=== PATIENT | female | born 1930 | race Caucasian/White ===

== ENCOUNTER 2017-10-30 20:03 | Emergency (ER) | payer OTHER ==
--- OUTSIDE RECORDS SUMMARY | 2017-10-30 20:05 | XMS REPORT | Clinical Summary ---
:1930 Author Organization [facility] Address [address] [place] [address] Care Team Providers Name Role Phone Kishan Rodríguez MD Primary Care Provider Allergies Active Allergy Reactions Severity Noted Date Comments Sulfa (Sulfonamide Antibiotics) 07/26/2017 Current Medications Prescription Sig. Disp. Refills Start Date End Date Status busPIRone (BUSPAR) Take 5 mg by 1 07/14/2017 Active 5 MG tablet mouth every morning. losartan (COZAAR) TAKE 1 TABLET 6 07/02/2017 Active 50 MG tablet BY ORAL ROUTE 2 TIMES EVERY DAY SYNTHROID 75 mcg Take 75 mcg 3 07/13/2017 Active tablet by mouth once daily. hydrALAZINE Take 10 mg by 3 08/21/2017 Active (APRESOLINE) 10 MG mouth 2 (two) tablet times a day. RED YEAST RICE ORAL Take by Active mouth. isosorbide Take 1 tablet 90 tablet 3 09/06/2017 09/06/2018 Active mononitrate (IMDUR) (30 mg total) 30 MG 24 hr tablet by mouth every morning. metoprolol Take 1 tablet 180 tablet 3 09/11/2017 09/11/2018 Active succinate XL (50 mg total) (TOPROL-XL) 50 mg by mouth 2 24 hr tablet (two) times a day. metoprolol Take 50 mg by 3 06/25/2017 09/11/2017 Discontinued succinate XL mouth once (TOPROL-XL) 50 mg daily. Twice 24 hr tablet daily Active Problems Problem Noted Date Hypertensive crisis 10/18/2017 Abnormal EKG 10/18/2017 Essential hypertension 07/26/2017 Encounters Date Type Specialty Care Team Description 10/30/2017 Hospital Encounter Procedural Cardiology Adalid Banks Hypertensive hien; MD Olivia Abnormal EKG 10/18/2017 Office Visit Cardiology Adalid Banks Essential hypertension ( Primary Dx); MD Olivia Hypertensive crisis; Abnormal EKG 09/19/2017 Telephone Cardiovascular Adalid Banks MD 09/13/2017 Telephone Cardiovascular Adalid Banks MD 09/11/2017 Refill Cardiology Adalid Banks Med Refill MD Olivia 09/06/2017 Office Visit Cardiology Adalid Banks Essential MD Olivia hypertension (Primary Dx) 08/31/2017 Telephone Cardiology Adalid Banks f/u on rx change MD Olivia 08/27/2017 Telephone Cardiology Adalid Banks change in RX d/t htn MD Olivia 07/26/2017 Office Visit Cardiology Adalid Banks Annual physical exam ( Primary Dx); MD Olivia Essential hypertension after 10/29/2016 Family History Medical History Relation Name Comments CABG/Stent Mother triple CABG/Stent Son triple Relation Name Status Comments Mother Son Social History Tobacco Use Types Packs/Day Years Used Date Never Smoker Smokeless Tobacco: Never Used Alcohol Use Drinks/Week oz/Week Comments Yes Sex Assigned at Date Recorded Not on file Last Filed Vital Signs Vital Sign Reading Time Taken Blood Pressure 207/79 10/30/2017 2:07 PM CDT Pulse 56 10/30/2017 2:07 PM CDT Temperature - - Respiratory Rate 16 10/18/2017 10:48 AM CDT Oxygen Saturation - - Inhaled Oxygen Concentration - - Weight 56.7 kg (125 lb) 10/30/2017 2:07 PM CDT Height 162.6 cm (5' 4") 10/30/2017 2:07 PM CDT Body Mass Index 21.46 10/30/2017 2:07 PM CDT Plan of Treatment Health Maintenance Due Date Last Done Comments ZOSTER VACCINE 1989 PNEUMOCOCCAL POLYSACCHARIDE VACCINE AGE 65 AND OVER 1994 PNEUMOCOCCAL-13 1994 INFLUENZA VACCINE 02/20/2018 Results Cv cta coronary arteries w contrast (10/30/2017 2:03 PM) Specimen Performing Laboratory [facility] [address] [place] [address] Narrative Nuclear Cardiology and Cardiac CT [address] [address] CTA Coronary Arteries Report Pat.Name:ARTUR CABRERA Pat.ID:[id number] St.Date: 10/30/2017 Refer.MD:ADALID BANKS MD Exam Time: 1:36:00 PMStudy Type:CTA Coronary Arteries Height:64inWeight: 122.74lb BSA: 1.59 m2 DOBAge:1930,87Y Sex: FEMALEHR: 62 bpm Nuclear Tech:RT Lucinda(R)(CT) Pat. Stat.:Outpatient CPT - 4: CCTA w Thoracic Aorta (NonCongenital) [id number] Nuclear Event ID:[id number] Order ID:[id number] Reason for Study:CAD [place] coronary artery* Procedures:CTA Chest Non- Coronary, CTA Coronary Arteries Race:C SUMMARY: Technique: IV contrast was administered and sequential 0.[address] cuts were obtained through the [facility]. Post-processing and 3D reconstruction were done using the [employer] workstation. Interactive image viewing and volumetric display and analysis were also performed. CTA RESULTS Left Main: A normal sized3.5 mm artery which arises normally from the left sinus of Valsalva and divides into the left anterior descending and circumflex coronary arteries. Mild calcified and non-calcified atherosclerotic plaque is present and with 50-55% ostial stenosis. Left anterior descending (LAD): A normal sized 3.1mm artery which wraps around the apex and gives off three diagonal branches. Moderate calcified and non-calcified atherosclerotic plaque is present in the proximal, mid and distal segments but without significant stenosis. The first diagonal is a 1.3 mm artery which has mild calcified atherosclerotic plaque but no significant stenosis. The second diagonal is a 1.6 mm artery which has no significant atherosclerotic plaque. The third diagonal is a 1.7 mm artery which has no significant atherosclerotic plaque. Left circumflex: A normal sized 2.5 mm non-dominant artery which gives off two major obtuse marginal arteries before terminating in the AV groove. Mild calcified and noncalcified atherosclerotic plaque is present in the proximal segment but no significant stenosis. The first obtuse marginal is a 2.3 mm bifurcating artery which has moderate calcified and noncalcified atherosclerotic plaque is present and with 40% stenosis in the ostial segment. The second obtuse marginal is a 1.8 mm artery which has mild calcified atherosclerotic plaque but no significant stenosis. Right coronary artery: A normal sized 4.4 mm dominant artery which arises normally from the right sinus of Valsalva and gives off several right ventricular branches, the posterior descending artery and the posterolateral artery.Mild calcified atherosclerotic plaque is present in the proximal segment but without significant stenosis. The posterior descending is a 2.5 mm bifurcating artery which has mild calcified and noncalcified atherosclerotic plaque but no significant stenosis. The posterolateral branch is a 2.6 mm bifurcating artery which has mild calcified and noncalcified atherosclerotic plaque but no significant stenosis. Stents: None. Bypass Grafts: None. Pulmonary Arteries: Normal pulmonary artery sizes with no proximal thrombus identified. Left Atrial and Pulmonary Vein(PV) Dimensions: Left atrial size (A-P diameter) 3.4 cm. Normal PV anatomy. Left superior PV14 mm. Left inferior PV15 mm. Right superior PV16 mm. Right inferior PV18 mm. There is no evidence of the left atrial appendage clot. Patent foramen ovale. Left Ventricular Valve Morphology/Function: Aortic valve is tri-leaflet without stenosis. Thoracic Aortic Dimensions: No aortic aneurysm or dissection is seen. Aortic root: 3.6 cm. Sinotubular junction 2.5 cm. Mid ascending thoracic aorta 3.3 cm. Distal ascending thoracic aorta 3.1 cm. Aortic arch 2.4 cm. There is normal takeoff of the great vessels and no significant stenosis in the proximal visualized segments. Aortic Isthmus 2.2 cm. Descending thoracic aorta 2.0 cm. Pericardium: No pericardial effusion or pericardial thickening. Non-Cardiac Findings: Bibasilar lung atelectasis. Small hiatal hernia. CONCLUSION CT coronary angiography shows moderate 50-55% stenosis in the ostial left main and minimal 40% stenosis in the ostium of the first obtuse marginal coronary artery. STUDY QUALITY The study quality is good. COMMENTS: None. The above report was based on a dedicated Cardiovascular CTA Protocol and interpreted by a Hvac R Instructor.Should a more comprehensive assessment of non-cardiovascular findings be desired, please consult a radiologist.These images are available in the [facility] [employer] PACS system. Signed 10/30/2017 05:27 PM Vernon Thompson MD Procedure Note Interface, Radiology Results In - 10/30/2017 5:28 PM CDT Nuclear Cardiology and Cardiac CT [address] [address] CTA Coronary Arteries Report Pat.Name: ARTUR CABRERA Pat.ID: [id number] St.Date: 10/30/2017 Refer.MD: ADALID BANKS MD Exam Time: 1:36:00 PM Study Type:CTA Coronary Arteries Height: 64in Weight: 122.74lb BSA: 1.59 m2 Age: 10 1930,87Y Sex: FEMALE HR: 62 bpm Nuclear Tech:RT Lucinda(R)(CT) Pat. Stat.:Outpatient CPT - 4: CCTA w Thoracic Aorta (NonCongenital) [id number] Nuclear Event ID:[id number] Order ID: [id number] Reason for Study:CAD [place] coronary artery* Procedures:CTA Chest Non- Coronary, CTA Coronary Arteries Race: C SUMMARY: Technique: IV contrast was administered and sequential 0.[address] cuts were obtained through the chest using the Siem[employer] Som[employer] Force CT scanner. Post-processing and 3D reconstruction were done using the [employer] workstation. Interactive image viewing and volumetric display and analysis were also performed. CTA RESULTS Left Main: A normal sized 3.5 mm artery which arises normally from the left sinus of Valsalva and divides into the left anterior descending and circumflex coronary arteries. Mild calcified and non-calcified atherosclerotic plaque is present and with 50-55% ostial stenosis. Left anterior descending (LAD): A normal sized 3.1mm artery which wraps around the apex and gives off three diagonal branches. Moderate calcified and non-calcified atherosclerotic plaque is present in the proximal, mid and distal segments but without significant stenosis. The first diagonal is a 1.3 mm artery which has mild calcified atherosclerotic plaque but no significant stenosis. The second diagonal is a 1.6 mm artery which has no significant atherosclerotic plaque. The third diagonal is a 1.7 mm artery which has no significant atherosclerotic plaque. Left circumflex: A normal sized 2.5 mm non-dominant artery which gives off two major obtuse marginal arteries before terminating in the AV groove. Mild calcified and noncalcified atherosclerotic plaque is present in the proximal segment but no significant stenosis. The first obtuse marginal is a 2.3 mm bifurcating artery which has moderate calcified and noncalcified atherosclerotic plaque is present and with 40% stenosis in the ostial segment. The second obtuse marginal is a 1.8 mm artery which has mild calcified atherosclerotic plaque but no significant stenosis. Right coronary artery: A normal sized 4.4 mm dominant artery which arises normally from the right sinus of Valsalva and gives off several right ventricular branches, the posterior descending artery and the posterolateral artery. Mild calcified atherosclerotic plaque is present in the proximal segment but without significant stenosis. The posterior descending is a 2.5 mm bifurcating artery which has mild calcified and noncalcified atherosclerotic plaque but no significant stenosis. The posterolateral branch is a 2.6 mm bifurcating artery which has mild calcified and noncalcified atherosclerotic plaque but no significant stenosis. Stents: None. Bypass Grafts: None. Pulmonary Arteries: Normal pulmonary artery sizes with no proximal thrombus identified. Left Atrial and Pulmonary Vein (PV) Dimensions: Left atrial size (A-P diameter) 3.4 cm. Normal PV anatomy. Left superior PV14 mm. Left inferior PV15 mm. Right superior PV16 mm. Right inferior PV18 mm. There is no evidence of the left atrial appendage clot. Patent foramen ovale. Left Ventricular Valve Morphology/Function: Aortic valve is tri-leaflet without stenosis. Thoracic Aortic Dimensions: No aortic aneurysm or dissection is seen. Aortic root: 3.6 cm. Sinotubular junction 2.5 cm. Mid ascending thoracic aorta 3.3 cm. Distal ascending thoracic aorta 3.1 cm. Aortic arch 2.4 cm. There is normal takeoff of the great vessels and no significant stenosis in the proximal visualized segments. Aortic Isthmus 2.2 cm. Descending thoracic aorta 2.0 cm. Pericardium: No pericardial effusion or pericardial thickening. Non-Cardiac Findings: Bibasilar lung atelectasis. Small hiatal hernia. CONCLUSION CT coronary angiography shows moderate 50-55% stenosis in the ostial left main and minimal 40% stenosis in the ostium of the first obtuse marginal coronary artery. STUDY QUALITY The study quality is good. COMMENTS: None. The above report was based on a dedicated Cardiovascular CTA Protocol and interpreted by a Hvac R Instructor. Should a more comprehensive assessment of non-cardiovascular findings be desired, please consult a radiologist. These images are available in the [facility] [employer] PACS system. Signed 10/30/2017 05:27 PM Vernon Thompson MD Estimated GFR (10/30/2017 1:24 PM) Component Value Ref Range GFR Non Af Amer 52 (A) mL/min/1.73 m2 GFR Af Amer 63 mL/min/1.73 m2 Comment: Chronic kidney disease: <60 mL/min/1.73m2 Kidney failure: <15 mL/min/1.73m2 The estimated GFR is calculated from the IDMS-traceable Modification of Diet in Renal Disease Equation. The accuracy of the calculation is poor when the creatinine is normal. Calculated values >90 mL/min/1.73m2 are not reported. This equation has not been validated in children (<18 years), women, the elderly (>70 years), or ethnic groups other than Caucasians and Americans. Specimen Performing Laboratory Blood [facility] DEPARTMENT OF PATHOLOGY AND GENOMIC MEDICINE [address] [place] [id number] POC creatinine (10/30/2017 1:24 PM) Component Value Ref Range POC creatinine 1.0 (H) 0.5 - 0.9 mg/dl Comment: Meter ID: [id number] Receiving Coordinator: Ruddy Shankar Specimen Performing Laboratory Blood [facility] DEPARTMENT OF PATHOLOGY AND GENOMIC MEDICINE [address] [place] [id number] ECG 12 lead (10/18/2017 10:51 AM)Only the most recent of2 resultswithin the time period is included. Component Value Ref Range Ventricular rate 56 Atrial rate 56 MA interval 188 QRSD interval 78 QT interval 448 QTC interval 432 P axis 1 70 QRS axis 1 -30 T wave axis 53 EKG impression Sinus bradycardia-Left axis deviation-Abnormal ECG-In automated comparison with ECG of 26-JUL-2017 08:50,-No significant change was found- Specimen Performing Laboratory [facility] [address] [place] [address] after 10/29/2016 Insurance Payer Benefit Plan / Group Subscriber ID Type Phone Address MEDICARE MEDICARE PART A AND B xxxxxxxxxx Medicare [place], [place] [employer] xxxxxxxxx Commercial [phone] [address]
[2017-10-30] MEDS ORDERED: NA CHLORIDE 0.9% 1,000 ML ONE (21:17)
[2017-10-30] MEDS ORDERED: HYDRALAZINE HCL 10 MG TABLET ONE (21:17)
[2017-10-30] MEDS ORDERED: HYDRALAZINE HCL 20 MG/ML VIAL ONE (21:17)
--- NOTE | 2017-10-30 21:20 | RAD REPORT ---
EXAM DESCRIPTION: RAD - Chest Single View - 10/30/2017 9:14 pm CLINICAL HISTORY: Cough, hypertension COMPARISON: 09/12/2017 FINDINGS: Portable technique limits examination quality. The lungs are mildly emphysematous but grossly clear. The heart is mildly enlarged in size. No displa syed fractures.Aortic atherosclerosis noted. IMPRESSION: No acute intrathoracic process suspected.
[2017-10-30 22:12] LABS: Protime INR 1.13
[2017-10-30 22:13] LABS: Absolute Monocytes 0.9 K/uL (0.1-1.3); Absolute Neutrophil 4.7 K/uL (1.8-8.0); Basophils % 0.4 % (0-1.3); Eosinophils % 0.8 % (0-4.4); Lymphocytes % 25.8 % (15.3-44.8); MCH 29.6 pg (27.0-35.0); MCV 89.9 fL (80-100); MPV 9.8 fL (7.6-11.3); Monocytes % 11.2 % (3.3-12.3)
[2017-10-30 22:13] LABS: Urine Blood NEGATIVE (NEG); Urine Glucose NEGATIVE (NEG); Urine Protein NEGATIVE (NEG); Urine Specific Gravity <1.005 (1.005-1.030)
[2017-10-30] MEDS ORDERED: ACETYLCYST 6,000 MG/30 ML VIAL ONE (22:15)
[2017-10-30 22:22] LABS: Bicarbonate 24 mEq/L (21-31); Glucose Level 91 mg/dL (65-120); Potassium 4.2 mEq/L (3.6-5.0); Sodium Level 130 mEq/L (135-145)
[2017-10-30 22:28] LABS: ALT/SGPT 96 IU/L (10-60); AST/SGOT 113 IU/L (10-42); Alkaline Phosphatase 95 IU/L (42-121); BUN Blood Urea Nitrogen 26 mg/dL (6-20); Bilirubin Direct < 0.1 mg/dL (0-0.2); Bilirubin Total 0.5 mg/dL (0.3-1.2); Creatine Phosphokinase 100 IU/L (22-269); Glomerular Filtration Rate 55 mL/min (=/>90); Magnesium 1.8 mg/dL (1.8-2.5); Protein, Total 6.6 g/dL (6.0-8.3)
[2017-10-30 22:30] LABS: CKMB Creatine Kinase MB 3.2 ng/ml (0.3-4.0)
--- NOTE | 2017-10-30 22:37 | ER ---
Nurse's Notes [facility] Name: Kristine Cabrera Age: 87 yrs Sex: Female : 1930 Arrival Date: 10/30/2017 Time: 20:04 Bed 27 Private MD: Diagnosis: Essential (primary) hypertension;Weakness;Urinary tract infection, site not specified;Hypo-osmolality and hyponatremia Presentation: 10/30 20:42 Presenting complaint: Patient states: that she had a cardiac CT done today. Then this afternoon she started to feel as if she had cold water going thru her veins. Checked her bp and it was high. Transition of care: patient was not received from another setting of care. Onset of symptoms was October 30, 2017. Care prior to arrival: None. 20:42 Method Of Arrival: Ambulatory 20:42 Acuity: PRESTON 3 fc Historical: - Allergies: 20:45 Sulfa (Sulfonamide Antibiotics); fc - Home Meds: 20:45 buspirone 5 mg Oral tab daily [Active]; Synthroid 75 mcg Oral tab 1 tab once daily fc [Active]; metoprolol succinate 50 mg Oral Tb24 1 tab twice a day [Active]; isosorbide mononitrate 30 mg Oral Tb24 1 tab once daily [Active]; hydralazine 10 mg Oral tab 1 tab 2 times per day [Active]; losartan 50 mg Oral tab 1 tab 2 times per day [Active]; - PMHx: 20:45 Hypertension; fc - PSHx: 20:45 Hysterectomy; Appendectomy; Bladder suspension; fc - Immunization history:: Last tetanus immunization: unknown. - Social history:: Smoking status: Patient/guardian denies using tobacco. - Family history:: not pertinent. Screenin:35 Abuse screen: Denies threats or abuse. Nutritional screening: No deficits noted. kb1 Tuberculosis screening: No symptoms or risk factors identified. Fall Risk Assessment: 21:00 General: Appears in no apparent distress. Behavior is calm, cooperative. Pain: kb1 Complains of pain in head "pressure". Neuro: Level of Consciousness is awake, alert, obeys commands, Oriented to person, place, time, situation. Cardiovascular: Capillary refill < 3 seconds Patient's skin is warm and dry. Respiratory: Airway is patent Respiratory effort is even, unlabored, Respiratory pattern is regular, symmetrical. GI: No signs and/or symptoms were reported involving the gastrointestinal system. : No signs and/or symptoms were reported regarding the genitourinary system. 22:00 Reassessment: Patient appears in no apparent distress at this time. Patient and/or kb1 family updated on plan of care and expected duration. Pain level reassessed. Patient is alert, oriented x 3, equal unlabored respirations, skin warm/dry/pink. 23:00 Reassessment: Patient appears in no apparent distress at this time. Patient and/or kb1 family updated on plan of care and expected duration. Pain level reassessed. Patient is alert, oriented x 3, equal unlabored respirations, skin warm/dry/pink. 23:45 Reassessment: Patient appears in no apparent distress at this time. Patient and/or kb1 family updated on plan of care and expected duration. Pain level reassessed. Patient is alert, oriented x 3, equal unlabored respirations, skin warm/dry/pink. Patient states feeling better. Vital Signs: 20:45 BP 206 / 81; Pulse 57; Resp 18; Temp 97.5(O); Pulse Ox 98% on R/A; Weight 56.25 kg (R); fc Height 5 ft. 4 in. (162.56 cm) (R); Pain 0/10; 21:35 BP 182 / 81; Pulse 52; Resp 18; Pulse Ox 99% ; kb1 23:07 BP 187 / 69; Pulse 53; Resp 18; Pulse Ox 99% ; kb1 23:45 BP 179 / 71; Pulse 55; Resp 18; Pulse Ox 99% ; kb1 20:45 Body Mass Index 21.28 (56.25 kg, 162.56 cm) ED Course: 20:04 Patient arrived in ED. ds1 20:43 Triage completed. fc 20:45 Arm band placed on Patient placed in an exam room, on a stretcher. fc 20:48 Bernice Lloyd RN is Primary Nurse. kb1 20:53 Marcio Lanza MD is Attending Physician. lisa 21:00 Patient has correct armband on for positive identification. Bed in low position. Call kb1 light in reach. Side rails up X 1. telehealth coordinator on. Pulse ox on. NIBP on. 21:13 XRAY Chest (1 view) In Process Unspecified. EDMS 21:30 No provider procedures requiring assistance completed. Inserted saline lock: 22 gauge kb1 in right forearm, using aseptic technique. Blood collected. 22:36 Jerrell Rodríguez MD is Referral Physician. [facility] 10/31 00:09 Patient transferred, IV remains in place. intact, bleeding controlled, No kb1 redness/swelling at site. Pressure dressing applied. Administered Medications: 10/30 21:12 CANCELLED (Duplicate Order): hydrALAZINE 10 mg IV at per protocol once lisa 21:40 Drug: hydrALAZINE 10 mg Route: PO; [facility] 23:44 Follow up: Response: Blood pressure is lowered kb 21:45 Drug: hydrALAZINE 5 mg Route: IV; Rate: per protocol; Site: right forearm; [facility] 23:05 Follow up: IV Status: Completed infusion [facility] 22:04 Drug: NS 0.9% 1000 ml Route: IV; Rate: 75 ml/hr; Site: right forearm; [facility] 10/31 00:09 Follow up: IV Status: Order to discontinue infusion [facility] 10/30 22:20 Drug: NS 0.9% 500 ml Route: IV; Rate: bolus; Site: right forearm; [facility] 23:05 Follow up: IV Status: Completed infusion [facility] 22:20 Drug: Mucomyst - Acetylcysteine 600 mg Route: PO; [facility] 10/31 00:08 Follow up: Response: No adverse reaction [facility] 10/30 23:05 Drug: Ativan 0.25 mg Route: IVP; Site: right forearm; [facility] 10/31 00:07 Follow up: Response: No adverse reaction [facility] 10/30 23:05 Drug: Rocephin - (cefTRIAXone) 1 grams Route: IVPB; Infused Over: 5 mins; Site: right kb1 forearm; 10/31 00:07 Follow up: IV Status: Completed infusion [facility] 10/30 23:06 Drug: Cipro 500 mg Route: PO; [facility] 10/31 00:06 Follow up: Response: No adverse reaction [facility] 10/30 23:06 Drug: Magnesium Sulfate 1 grams Route: IVPB; Infused Over: 1 hrs; Site: right forearm; [facility] 10/31 00:06 Follow up: IV Status: Completed infusion [facility] 00:06 Drug: Ativan 0.25 mg Route: IVP; Site: right forearm; kb1 00:06 Follow up: Response: No adverse reaction kb1 Outcome: 10/30 22:36 Discharge ordered by MD. gonzalez 10/31 00:10 Discharged to home ambulatory, with family. kb1 Condition: improved Discharge instructions given to patient, Instructed on discharge instructions, follow up and referral plans. medication usage, Demonstrated understanding of instructions, follow-up care, medications, Prescriptions given X 1. 00:11 Patient left the ED. kb1 Addendum: 11/03/2017 08:00 Addendum: Culture Results: Positive urine culture. No further action required. Bacteria i w sensitive to prescribed antibiotic. Signatures: Dispatcher [employer] EDMS Marcio Lanza MD MD cha Chretien, Felicia, RN RN fc Sanford, Demi ds1 Leyla Heart, Bernice Landaverde RN, RN RN kb1
--- NOTE | 2017-10-30 22:37 | EDPHYS ---
Physician Documentation [facility] Name: Kristine Cabrera Age: 87 yrs Sex: Female : 1930 Arrival Date: 10/30/2017 Time: 20:04 Bed 27 Private MD: ED Physician Marcio Lanza HPI: 10/30 21:15 This 87 yrs old Female presents to ER via Ambulatory with complaints of High lisa Blood Pressure. 21:15 The patient has elevated blood pressure and discovered this at home. Onset: The lisa symptoms/episode began/occurred today. Modifying factors: The symptoms are aggravated by activity, The symptoms are alleviated by remaining still. Associated signs and symptoms: Pertinent positives: weakness. Severity of symptoms: At its worst the blood pressure was mild, in the emergency department the blood pressure is unchanged. The patient has not experienced similar symptoms in the past. Historical: - Allergies: 20:45 Sulfa (Sulfonamide Antibiotics); fc - Home Meds: 20:45 buspirone 5 mg Oral tab daily [Active]; Synthroid 75 mcg Oral tab 1 tab once daily fc [Active]; metoprolol succinate 50 mg Oral Tb24 1 tab twice a day [Active]; isosorbide mononitrate 30 mg Oral Tb24 1 tab once daily [Active]; hydralazine 10 mg Oral tab 1 tab 2 times per day [Active]; losartan 50 mg Oral tab 1 tab 2 times per day [Active]; - PMHx: 20:45 Hypertension; fc - PSHx: 20:45 Hysterectomy; Appendectomy; Bladder suspension; fc - Immunization history:: Last tetanus immunization: unknown. - Social history:: Smoking status: Patient/guardian denies using tobacco. - Family history:: not pertinent. ROS: 21:15 Constitutional: Negative for fever, chills, and weight loss, Eyes: Negative for injury, lisa pain, redness, and discharge, ENT: Negative for injury, pain, and discharge, Neck: Negative for injury, pain, and swelling, Cardiovascular: Negative for chest pain, palpitations, and edema, Respiratory: Negative for shortness of breath, cough, wheezing, and pleuritic chest pain, Abdomen/GI: Negative for abdominal pain, nausea, vomiting, diarrhea, and constipation, Back: Negative for injury and pain, : Negative for injury, bleeding, discharge, and swelling, MS/Extremity: Negative for injury and deformity, Skin: Negative for injury, rash, and discoloration, Neuro: Negative for headache, weakness, numbness, tingling, and seizure, Psych: Negative for depression, anxiety, suicide ideation, homicidal ideation, and hallucinations, Allergy/Immunology: Negative for hives, rash, and allergies, Endocrine: Negative for neck swelling, polydipsia, polyuria, polyphagia, and marked weight changes, Hematologic/Lymphatic: Negative for swollen nodes, abnormal bleeding, and unusual bruising. Exam: 21:15 Constitutional: This is a well developed, well nourished patient who is awake, alert, lisa and in no acute distress. Head/Face: Normocephalic, atraumatic. Eyes: Pupils equal round and reactive to light, extra-ocular motions intact. Lids and lashes normal. Conjunctiva and sclera are non-icteric and not injected. Cornea within normal limits. Periorbital areas with no swelling, redness, or edema. ENT: Nares patent. No nasal discharge, no septal abnormalities noted. Tympanic membranes are normal and external auditory canals are clear. Oropharynx with no redness, swelling, or masses, exudates, or evidence of obstruction, uvula midline. Mucous membranes moist. Neck: Trachea midline, no thyromegaly or masses palpated, and no cervical lymphadenopathy. Supple, full range of motion without nuchal rigidity, or vertebral point tenderness. No Meningismus. Chest/axilla: Normal chest wall appearance and motion. Nontender with no deformity. No lesions are appreciated. Cardiovascular: Regular rate and rhythm with a normal S1 and S2. No gallops, murmurs, or rubs. Normal PMI, no JVD. No pulse deficits. Respiratory: Lungs have equal breath sounds bilaterally, clear to auscultation and percussion. No rales, rhonchi or wheezes noted. No increased work of breathing, no retractions or nasal flaring. Abdomen/GI: Soft, non-tender, with normal bowel sounds. No distension or tympany. No guarding or rebound. No evidence of tenderness throughout. Back: No spinal tenderness. No costovertebral tenderness. Full range of motion. Skin: Warm, dry with normal turgor. Normal color with no rashes, no lesions, and no evidence of cellulitis. MS/ Extremity: Pulses equal, no cyanosis. Neurovascular intact. Full, normal range of motion. Neuro: Awake and alert, GCS 15, oriented to person, place, time, and situation. Cranial nerves II-XII grossly intact. Motor strength 5/5 in all extremities. Sensory grossly intact. Cerebellar exam normal. Normal gait. Psych: Awake, alert, with orientation to person, place and time. Behavior, mood, and affect are within normal limits. 22:49 Cardiovascular: Rate: normal, Rhythm: regular, Pulses: Pulses are 4+ in bilateral lisa radial, brachial, femoral, popliteal, posterior tibial and and dorsalis pedis arteries.. Heart sounds: normal, Edema: is not appreciated, JVD: is not appreciated. 22:49 Musculoskeletal/extremity: DVT Exam: No signs of deep vein thrombosis. no pain, no lisa swelling, no tenderness, negative Homans' sign noted on exam, no appreciated bluish discoloration, no erythema, no increased warmth. Vital Signs: 20:45 BP 206 / 81; Pulse 57; Resp 18; Temp 97.5(O); Pulse Ox 98% on R/A; Weight 56.25 kg (R); fc Height 5 ft. 4 in. (162.56 cm) (R); Pain 0/10; 21:35 BP 182 / 81; Pulse 52; Resp 18; Pulse Ox 99% ; kb1 23:07 BP 187 / 69; Pulse 53; Resp 18; Pulse Ox 99% ; kb1 23:45 BP 179 / 71; Pulse 55; Resp 18; Pulse Ox 99% ; kb1 20:45 Body Mass Index 21.28 (56.25 kg, 162.56 cm) MDM: 20:55 Patient medically screened. [facility] 21:16 Data reviewed: vital signs, nurses notes, lab test result(s), EKG, radiologic studies, [facility] plain films. 10/30 20:54 Order name: Basic Metabolic Panel [facility] 10/30 20:54 Order name: BNP; Complete Time: 22:49 [facility] 10/30 20:54 Order name: CBC with Diff; Complete Time: 22:16 [facility] 10/30 20:54 Order name: Ckmb [facility] 10/30 20:54 Order name: CPK [facility] 10/30 20:54 Order name: LFT's; Complete Time: 22:30 [facility] 10/30 20:54 Order name: Magnesium; Complete Time: 22:30 [facility] 10/30 20:54 Order name: PT-INR; Complete Time: 22:17 [facility] 10/30 20:54 Order name: Ptt, Activated; Complete Time: 22:17 [facility] 10/30 20:54 Order name: Troponin (emerg Dept Use Only); Complete Time: 22:16 [facility] 10/30 20:54 Order name: Urine Culture [facility] 10/30 20:55 Order name: Basic Metabolic Panel; Complete Time: 22:30 [facility] 10/30 20:55 Order name: CKMB Creatine Kinase MB; Complete Time: 22:30 [facility] 10/30 20:55 Order name: Creatine Phosphokinase; Complete Time: 22:30 [facility] 10/30 20:54 Order name: XRAY Chest (1 view); Complete Time: 21:40 [facility] 10/30 20:54 Order name: EKG; Complete Time: 20:55 [facility] 10/30 20:54 Order name: Cardiac monitoring; Complete Time: 23:44 [facility] 10/30 20:54 Order name: EKG - Nurse/Tech; Complete Time: 23:44 [facility] 10/30 21:54 Order name: Urine Dipstick--Ancillary (enter results); Complete Time: 22:16 [facility] 10/30 20:54 Order name: IV Saline Lock; Complete Time: 22:03 [facility] 10/30 20:54 Order name: Labs collected and sent; Complete Time: 22:03 [facility] 10/30 20:54 Order name: O2 Per Protocol; Complete Time: 22:03 [facility] 10/30 20:54 Order name: O2 Sat Monitoring; Complete Time: 22:03 [facility] 10/30 20:54 Order name: Urine Dipstick-Ancillary (obtain specimen); Complete Time: 22:03 [facility] Administered Medications: 21:12 CANCELLED (Duplicate Order): hydrALAZINE 10 mg IV at per protocol once [facility] 21:40 Drug: hydrALAZINE 10 mg Route: PO; kb1 23:44 Follow up: Response: Blood pressure is lowered kb1 21:45 Drug: hydrALAZINE 5 mg Route: IV; Rate: per protocol; Site: right forearm; kb1 23:05 Follow up: IV Status: Completed infusion kb1 22:04 Drug: NS 0.9% 1000 ml Route: IV; Rate: 75 ml/hr; Site: right forearm; kb1 10/31 00:09 Follow up: IV Status: Order to discontinue infusion [facility] 10/30 22:20 Drug: NS 0.9% 500 ml Route: IV; Rate: bolus; Site: right forearm; [facility] 23:05 Follow up: IV Status: Completed infusion [facility] 22:20 Drug: Mucomyst - Acetylcysteine 600 mg Route: PO; [facility] 10/31 00:08 Follow up: Response: No adverse reaction [facility] 10/30 23:05 Drug: Ativan 0.25 mg Route: IVP; Site: right forearm; [facility] 10/31 00:07 Follow up: Response: No adverse reaction [facility] 10/30 23:05 Drug: Rocephin - (cefTRIAXone) 1 grams Route: IVPB; Infused Over: 5 mins; Site: right [facility] forearm; 10/31 00:07 Follow up: IV Status: Completed infusion [facility] 10/30 23:06 Drug: Cipro 500 mg Route: PO; [facility] 10/31 00:06 Follow up: Response: No adverse reaction [facility] 10/30 23:06 Drug: Magnesium Sulfate 1 grams Route: IVPB; Infused Over: 1 hrs; Site: right forearm; [facility] 10/31 00:06 Follow up: IV Status: Completed infusion [facility] 00:06 Drug: Ativan 0.25 mg Route: IVP; Site: right forearm; [facility] 00:06 Follow up: Response: No adverse reaction [facility] Disposition: 10/30/17 22:36 Discharged to Home. Impression: Essential (primary) hypertension, Weakness, Urinary tract infection, site not specified, Hypo-osmolality and hyponatremia. - Condition is Stable. - Discharge Instructions: Hypertension, Hyponatremia, Urinary Tract Infection, Weakness, Fatigue, Urinary Tract Infection, [id number], Hypertension, [id number], How to Take Your Blood Pressure, [id number], Weakness, [id number], Managing Your High Blood Pressure. - Prescriptions for Cipro 250 mg Oral Tablet - take 1 tablet by ORAL route every 12 hours; 14 tablet. - Medication Reconciliation Form, Thank You Letter, Antibiotic Education, Prescription Opioid Use form. - Follow up: Private Physician; When: 2 - 3 days; Reason: Recheck today's complaints, Continuance of care, Re-evaluation by your physician. Follow up: A Rodríguez; When: 2 - 3 days; Reason: Recheck today's complaints, Re-evaluation by your physician. - Problem is new. - Symptoms have improved. Signatures: Dispatcher [employer] Marcio Chong MD MD cha Chretien, Felicia RN RN Bernice Stephen RN RN kb1 Corrections: (The following items were deleted from the chart) 10/30 21:12 20:54 hydrALAZINE 10 mg IV at per protocol once ordered. lisa gonzalez
[2017-10-30] MEDS ORDERED: LORazepam 2 MG/ML VIAL ONE (22:46)
[2017-10-30] MEDS ORDERED: MAGNESIUM SULFATE 1 gm IVPB 1 GM/100 ML BAG IV ONE (22:46)
[2017-10-30] MEDS ORDERED: CEFTRIAXONE/SWI 1gm 1 GM/10 ML SYR ONE (22:47)
[2017-10-30] MEDS ORDERED: CIPROFLOXACIN HCL 500 MG TAB ONE (22:47)
[2017-10-31 00:29] VITALS: TEMP 97.5
[2017-10-31 00:30] VITALS: O2SAT 99
[2017-10-31 00:32] VITALS: BP 179/71
--- NOTE | 2017-10-31 07:59 | EKG ---
Test Date: 2017-10-30 Test Time: 21:30:04 Supervisor Compounding And Finishing: RONNI MEASUREMENT RESULTS: Intervals: Rate: 53 CO: 190 QRSD: 76 QT: 458 QTc: 429 Rickman: P: 73 CO: 190 QRS: -33 T: 40 INTERPRETIVE STATEMENTS: Sinus bradycardia Left axis deviation Abnormal ECG Compared to ECG 09/12/2017 22:48:41 Sinus rhythm no longer present Electronically Signed On 10-31-17 07:58:13 CDT by Cholo Nguyen
== END 2017-10-31 00:11 | disposition home or self-care (01) ==
LOC: ER 20:03
DX: I10 Essential (primary) hypertension (principal); N39.0 Urinary tract infection, site not specified; E87.1 Hypo-osmolality and hyponatremia; Z88.2 Allergy status to sulfonamides
CPT/HCPCS: 36415; 71045; 80048; 80076; 81003; 82550; 82553; 83735; 83880; 84484; 85025; 85610; 85730; 87077; 87086; 87088; 87186; 93005; 96361; 96365; 96367; 96368; 96375; 99284; J0360; J0696; J3475; J7030